=== PATIENT | female | born 1945 | race Caucasian/White ===

== ENCOUNTER 2022-01-20 09:13 | Day surgery (SDC) | payer OTHER ==
[~2022-01-20] VITALS: Ht 160 cm; Wt 77.5 kg
[~2022-01-20 09:13] MED LIST: AMLO5 PO; ANTI-FUNGAL CR113 GM TOP; ATOR40TA PO; BUDE6HFA INH; CLEM1.34 PO; Flovent Diskus50 MCG IH; INSULANPEN PO; ISOMON20 PO; LIDO4TS50 TOP; METF850 PO; Nexium40 M1 PO; PROP120ER PO; PROZAC20 MG PO; RIFA550T2 PO; [UNRECOGNIZED DRUG - OTHER] PO
== END 2022-01-20 11:40 | disposition home or self-care (01) ==
LOC: ORSCSDS 09:13
PROVIDERS: Ophthalmology
PROC: 08DJ3ZZ Extraction of Right Lens, Percutaneous Approach (ICD-10-PCS; principal; 2022-01-20 10:45)
DX: H25.11 Age-related nuclear cataract, right eye (principal); E11.9 Type 2 diabetes mellitus without complications; B19.20 Unspecified viral hepatitis C without hepatic coma; I10 Essential (primary) hypertension; Z86.73 Personal history of transient ischemic attack (TIA), and cerebral infarction without residual deficits; J44.9 Chronic obstructive pulmonary disease, unspecified; K74.60 Unspecified cirrhosis of liver; K21.9 Gastro-esophageal reflux disease without esophagitis; Z85.05 Personal history of malignant neoplasm of liver; E66.9 Obesity, unspecified; Z68.30 Body mass index [BMI] 30.0-30.9, adult; Z79.4 Long term (current) use of insulin; Z79.899 Other long term (current) drug therapy
CPT/HCPCS: 82947; J2001; J2250; J3301; J7040; V2632

== ENCOUNTER 2022-01-27 07:59 | Day surgery (SDC) | payer OTHER ==
[~2022-01-27] VITALS: Ht 160 cm; Wt 78.2 kg
[2022-01-27] MEDS ORDERED: MELO7.5 PO (09:06)
[2022-01-27] MEDS ORDERED: LOPE2C PO (09:08)
[2022-01-27] MEDS ORDERED: GABA100 PO (09:12)
[2022-01-27] MEDS ORDERED: FERSU300 PO (09:13)
[2022-01-27] MEDS ORDERED: OXYB5 PO (09:15)
[2022-01-27] MEDS ORDERED: INSULIN AS100 UNIT/6 SC (09:17)
== END 2022-01-27 10:25 | disposition home or self-care (01) ==
LOC: ORSCSDS 07:59
PROVIDERS: Ophthalmology
PROC: 08DK3ZZ Extraction of Left Lens, Percutaneous Approach (ICD-10-PCS; principal; 2022-01-27 09:30)
DX: H25.12 Age-related nuclear cataract, left eye (principal); Z96.1 Presence of intraocular lens; E11.9 Type 2 diabetes mellitus without complications; B19.20 Unspecified viral hepatitis C without hepatic coma; J44.9 Chronic obstructive pulmonary disease, unspecified; K74.60 Unspecified cirrhosis of liver; Z85.05 Personal history of malignant neoplasm of liver; I10 Essential (primary) hypertension; Z87.891 Personal history of nicotine dependence; E66.9 Obesity, unspecified; Z68.30 Body mass index [BMI] 30.0-30.9, adult; Z79.84 Long term (current) use of oral hypoglycemic drugs; Z79.4 Long term (current) use of insulin; Z79.899 Other long term (current) drug therapy
CPT/HCPCS: 82947; J2001; J2250; J3301; J7040; V2632

== ENCOUNTER 2023-04-19 09:06 | Inpatient (IN) | payer OTHER ==
[~2023-04-19] VITALS: Ht 160 cm; Wt 63.6 kg
[~2023-04-19 09:06] MED LIST changes: +FERSU300 PO; +GABA100 PO; +INSULIN AS100 UNIT/6 SC; +LOPE2C PO; +MELO7.5 PO; +OXYB5 PO
[2023-04-19] MEDS ORDERED: NS 1,000 ML IV SCH ×2 (10:35→15:00)
[2023-04-19 10:44] LABS: BASOPHILS ABSOLUTE AUTO 0.02 K/mm3 (0.00-0.23); BASOPHILS PERCENT AUTO 0 % (0-2); EOSINOPHILS ABSOLUTE AUTO 0.09 K/mm3 (0.00-0.68); EOSINOPHILS PERCENT AUTO 1 % (0-6); Hematocrit 34.8 % (33.0-51.0); IMMATURE GRAN ABSOLUTE AUTO 0.08 K/mm3 (0.00-0.10); IMMATURE GRAN PERCENT AUTO 1 % (0-1); LYMPHOCYTES ABSOLUTE AUTO 0.68 K/mm3 (0.84-5.20); LYMPHOCYTES PERCENT AUTO 5 % (21-46); MONOCYTES ABSOLUTE AUTO 0.75 K/mm3 (0.16-1.47); MONOCYTES PERCENT AUTO 6 % (4-13); Mean Corpuscular HGB 26.4 pg (26.0-34.0); Mean Corpuscular HGB Conc 31.6 g/dL (31.5-36.5); Mean Corpuscular Volume 84 fL (80-100); NEUTROPHILS ABSOLUTE AUTO 11.17 K/mm3 (1.96-9.15); NEUTROPHILS PERCENT AUTO 87 % (41-73); Platelet Count 259 K/mm3 (150-400); RDW Coefficient Variation 16.1 % (11.7-14.2); RDW Standard Deviation 48.4 fL (35.1-46.3); Red Blood Cell Count 4.16 M/mm3 (3.80-5.20); White Blood Cell Count 12.79 K/mm3 (4.00-11.30)
[2023-04-19 10:59] LABS: Source, Urine Clean Catch
[2023-04-19 11:12] LABS: Albumin, Blood 2.8 g/dL (3.4-5.0); Albumin/Globulin Ratio 0.7 (0.8-1.8); Bilirubin, Total 1.2 mg/dL (0.1-1.0); Bun/Creatinine Ratio 34.6 (12.0-20.0); Calcium, Blood 9.4 mg/dL (8.5-10.1); Creatinine, Blood 0.55 mg/dL (0.40-1.00); Globulin, Blood 4.1 g/dL (2.2-4.0); Potassium, Blood 4.3 mmol/L (3.5-5.5); Total Protein, Blood 6.9 g/dL (6.4-8.2)
[2023-04-19 11:34] LABS: Appearance, Urine Clear (Clear); Bilirubin, Urine Neg (Neg); Blood, Urine 4+ (Neg); Color, Urine Yellow (P-Yellow); Glucose Qualitative, Urine 4+ (Neg); Ketones, Urine Neg (Neg); Leukocyte Esterase, Urine Neg (Neg); Nitrite, Urine Neg (Neg); Protein, Urine Neg (Neg); Urobilinogen, Urine NORM (Normal); pH, Urine 6.5 (5.0-8.0)
[2023-04-19 12:03] LABS: Bacteria Not Seen /hpf; Red Blood Cells, Urine 0-2 /hpf (0-2); Squamous Epithelial Cells Not Seen /hpf (Few); White Blood Cells, Urine Not Seen /hpf (0-5)
[2023-04-19] MEDS ORDERED: Insulin Regular 100 Unit/ML 1ML Dose IV ONE (12:10)
[2023-04-19] MEDS ORDERED: Metoclopramide HCl 5MG / ML 2ML Vial IV PRN (14:35)
[2023-04-19] MEDS ORDERED: OxyCODONE HCL 5 MG TAB PO PRN (14:35)
[2023-04-19] MEDS ORDERED: Bisacodyl 10 MG Supp PR PRN (14:40)
[2023-04-19] MEDS ORDERED: FLU VACC QS2023-24(6MOS UP)/PF 60 MCG/0.5 ML SYRINGE IM SCH (14:40)
[2023-04-19] MEDS ORDERED: Magnesium Hydroxide Conc 10 ML UDC PO PRN (14:40)
[2023-04-19] MEDS ORDERED: Acetaminophen 650 MG Supp PR PRN (14:40)
[2023-04-19] MEDS ORDERED: HydrALAZINE HCl 20 MG / ML 1ML Vial IV PRN (14:45)
[2023-04-19] MEDS ORDERED: Ondansetron HCl 2 MG / ML 2ML Vial IV PRN (14:50)
[2023-04-19] MEDS ORDERED: Mometasone/Formoterol MDI 200/5 mcg 13 GM INH SCH (15:50)
[2023-04-19] MEDS ORDERED: MetroNIDAZOLE 500MG/NS 100 ml 100 ML IV SCH (16:00)
[2023-04-19] MEDS ORDERED: Ciprofloxacin 400MG/D5 200ML 200 ML IV SCH (16:00)
[2023-04-19] MEDS ORDERED: Insulin Human Lispro 100 Units/ML 3ML Syringe SC SCH (16:30)
[2023-04-19 17:43] VITALS: BP 139/63
[2023-04-19] MEDS ORDERED: OZEMPIC2 MG/0.75 SC (19:58)
[2023-04-19] MEDS ORDERED: PRED20 PO (20:01)
[2023-04-19] MEDS ORDERED: Zofran8 MG PO (20:06)
[2023-04-19] MEDS ORDERED: DURVALUMAB IV (20:08)
--- NOTE | 2023-04-19 20:08 | NUR ---
1705- PT ARRIVED ON FLOOR AT 1705 IN STABLE CONDITION.
[2023-04-19] MEDS ORDERED: ATOR20 PO (20:09)
[2023-04-19] MEDS ORDERED: Inderal 20 mg T20 MG PO (20:09)
[2023-04-19] MEDS ORDERED: METO5A PO (20:10)
[2023-04-19] MEDS ORDERED: OMEP20ER PO (20:11)
[2023-04-19] MEDS ORDERED: FAMO40 PO (20:12)
[2023-04-19 20:14] VITALS: BP 127/61
[2023-04-19] MEDS ORDERED: Acetaminophen650 M1 PO (20:14)
[2023-04-19] MEDS ORDERED: Famotidine 20 MG Tab PO SCH (21:00)
[2023-04-19] MEDS ORDERED: Gabapentin 100 MG Cap PO SCH ×2 (21:00)
[2023-04-19] MEDS ORDERED: oxyBUTYnin chloride 5 MG TAB PO SCH (21:00)
[2023-04-19] MEDS ORDERED: Lactobacil 2-S.Thermo-Bifido 1 1 Cap PO SCH (21:00)
[2023-04-19] MEDS ORDERED: FLUoxetine HCL 20 MG CAP PO SCH (21:00)
[2023-04-19] MEDS ORDERED: Insulin Glargine-Yfgn 100 Unit/mL 3 ML SYR SC SCH ×3 (21:00)
[2023-04-20] MEDS ORDERED: MetroNIDAZOLE 500MG/NS 100 ml 100 ML IV SCH
[2023-04-20 02:59] VITALS: BP 143/71
--- NOTE | 2023-04-20 04:45 | NUR ---
SHIFT SUMMARY 78 YR F ADMITTED ON 04-19-23. FULL CODE. NO ACUTE CHANGES THIS SHIFT. CURRENTLY NEEDING A STOOL SAMPLE TO RULE OUT CDIF. PT REPORTEDLY HAD 8 WATERY DIARRHEA STOOLS ON DAY SHIFT (04-19-23), BUT HAS NOT HAD A BM THIS SHIFT. SHE IS INCONTINENT OF URINE AND CURRENTLY HAS A PUREWIK. SHE IS A VERY HEAVY WETTER AND WHEN PUREWIK CAME OUT OF PLACE THE BED WAS SOAKED REQUIRING A FULL BED CHANGE. PUREWIK SHOULD BE CHECKED OFTEN. PT IS A&O BUT VERY SLEEPY THIS SHIFT. MEDICATED FOR PAIN AT BEGINNING OF SHIFT BUT NO OTHER C/O PAIN OR DISCOMFORT FOR REST OF THIS SHIFT.
[2023-04-20 05:26] LABS: BASOPHILS ABSOLUTE AUTO 0.02 K/mm3 (0.00-0.23); BASOPHILS PERCENT AUTO 0 % (0-2); EOSINOPHILS ABSOLUTE AUTO 0.22 K/mm3 (0.00-0.68); EOSINOPHILS PERCENT AUTO 3 % (0-6); Hematocrit 36.3 % (33.0-51.0); Hemoglobin 11.7 g/dL (11.5-16.0); IMMATURE GRAN ABSOLUTE AUTO 0.04 K/mm3 (0.00-0.10); IMMATURE GRAN PERCENT AUTO 0 % (0-1); LYMPHOCYTES ABSOLUTE AUTO 0.86 K/mm3 (0.84-5.20); LYMPHOCYTES PERCENT AUTO 10 % (21-46); MONOCYTES ABSOLUTE AUTO 0.91 K/mm3 (0.16-1.47); MONOCYTES PERCENT AUTO 10 % (4-13); Mean Corpuscular HGB 26.7 pg (26.0-34.0); Mean Corpuscular HGB Conc 32.2 g/dL (31.5-36.5); Mean Corpuscular Volume 83 fL (80-100); Mean Platelet Volume 9.3 fL (9.1-12.4); NEUTROPHILS ABSOLUTE AUTO 6.84 K/mm3 (1.96-9.15); NEUTROPHILS PERCENT AUTO 77 % (41-73); Platelet Count 206 K/mm3 (150-400); RDW Standard Deviation 47.9 fL (35.1-46.3); Red Blood Cell Count 4.38 M/mm3 (3.80-5.20); White Blood Cell Count 8.89 K/mm3 (4.00-11.30)
[2023-04-20] MEDS ORDERED: Omeprazole 20 MG CapCR PO SCH (06:00)
[2023-04-20 06:34] LABS: Albumin, Blood 2.5 g/dL (3.4-5.0); Albumin/Globulin Ratio 0.7 (0.8-1.8); Bilirubin, Total 1.2 mg/dL (0.1-1.0); Bun/Creatinine Ratio 15.9 (12.0-20.0); Calcium, Blood 8.8 mg/dL (8.5-10.1); Creatinine, Blood 0.44 mg/dL (0.40-1.00); Globulin, Blood 3.8 g/dL (2.2-4.0); Potassium, Blood 3.9 mmol/L (3.5-5.5); Total Protein, Blood 6.3 g/dL (6.4-8.2)
[2023-04-20 08:06] VITALS: BP 150/74
[2023-04-20] MEDS ORDERED: Heparin Sodium,Porcine 5,000 UNIT/0.5 ML SDV SC SCH (09:00)
[2023-04-20] MEDS ORDERED: FLUoxetine HCL 20 MG CAP PO SCH (09:00)
[2023-04-20] MEDS ORDERED: Propranolol HCL 60 MG CAPCR PO SCH (09:00)
--- NOTE | 2023-04-20 09:16 | NUR ---
EMESIS CALLED DR GUILLERMO. ORDER FOR ZOFRAN RECEIVED. CARE ONGOING.
[2023-04-20] MEDS ORDERED: Ondansetron HCl 2 MG / ML 2ML Vial IV PRN (09:20)
[2023-04-20 12:15] LABS: Adenovirus F 40/41 Not Detected (NOT DETECT); Astrovirus Not Detected (NOT DETECT); Campylobacter Sp Not Detected (NOT DETECT); Cryptosporidium Not Detected (NOT DETECT); Cyclospora Cayetanensis Not Detected (NOT DETECT); E. Coli O157 Not Detected (NOT DETECT); Entamoeba Histolytica Not Detected (NOT DETECT); Enteroaggregative E. coli-EAEC Not Detected (NOT DETECT); Enteropathogenic E. coli-EPEC Not Detected (NOT DETECT); Enterotoxigenic E. coli-ETEC Not Detected (NOT DETECT); Giardia Lamblia Not Detected (NOT DETECT); Norovirus GI/GII Not Detected (NOT DETECT); Plesiomonas Shigelloides Not Detected (NOT DETECT); Rotavirus A Not Detected (NOT DETECT); Salmonella Sp Not Detected (NOT DETECT); Sapovirus Not Detected (NOT DETECT); Shiga Toxin-prod E. coli-STEC Not Detected (NOT DETECT); Shigella/Enteroin E. coli-EIEC Not Detected (NOT DETECT); Vibrio Cholerae Not Detected (NOT DETECT); Vibrio Sp Not Detected (NOT DETECT); Yersinia Enterocolitica Not Detected (NOT DETECT)
--- NOTE | 2023-04-20 15:09 | NUR ---
TRANSFER PT REPORT RECEIUVED FROM PCU. PT ARRIVED VIA W/C WITH HIGH FLOW OXYGEN CANNULA AT 4L. PT ALERT AND COOPERATIVE WITH CARE. LUNGS DECREASED T/O. CARE ONGOIONG.
[2023-04-20 15:45] VITALS: BP 125/57
--- NOTE | 2023-04-20 16:42 | NUR ---
NOTE PT AWKAE AND ALERT. VSS. TOLERATING CLEAR LIQUID THIS AFTERNOON. NO NAUSEA, EMESIS, BLAOTING OR CRAMPING. PT HAD 1 STOOL. SENT FOR CULTURE. CDIFF NEGATIVE. REMOVED FROM ISOLATION. IVF INFUSING. NEW IV PLACED D/T LEAKING. PT UP TO BSC WITH 1 ASSIST D/T LINES. CONSULT FOR DR VALENCIA CALLED TO [facility] PER ORDER. PURWICK IN PLACED. PT VOIDING DARK, CALIN CLEAR URINE. CARE ONGOING.
[2023-04-20 20:57] VITALS: BP 120/60
[2023-04-20] MEDS ORDERED: Insulin Glargine-Yfgn 100 Unit/mL 3 ML SYR SC SCH (21:00)
[2023-04-21 03:34] VITALS: BP 140/63
--- NOTE | 2023-04-21 04:11 | NUR ---
Shift Summary Patient is an 78 year old female admitted with colitis. She has a history of stage 4 liver cancer with metastisis to the lungs. Her respirations are regular and unlabored on room air. She is alert and oriented x 4. She has normal saline infusing per pump at 100ml/hr. She denies pain. She gets blood glucose checks AC and HS. Her HS blood sugar level was 267. She did not require sliding scale coverage but did receive her routine bedtime insulin. Bed is in low position with side rails up x 2. Call light in reach.
[2023-04-21 05:25] LABS: Hematocrit 34.8 % (33.0-51.0); Mean Corpuscular HGB 26.8 pg (26.0-34.0); Mean Corpuscular HGB Conc 31.6 g/dL (31.5-36.5); Mean Corpuscular Volume 85 fL (80-100); Mean Platelet Volume 9.3 fL (9.1-12.4); Platelet Count 190 K/mm3 (150-400); RDW Standard Deviation 49.5 fL (35.1-46.3); Red Blood Cell Count 4.11 M/mm3 (3.80-5.20); White Blood Cell Count 9.48 K/mm3 (4.00-11.30)
[2023-04-21 06:04] LABS: Albumin, Blood 2.2 g/dL (3.4-5.0); Albumin/Globulin Ratio 0.6 (0.8-1.8); Bilirubin, Total 1.1 mg/dL (0.1-1.0); Bun/Creatinine Ratio 12.6 (12.0-20.0); Calcium, Blood 7.9 mg/dL (8.5-10.1); Creatinine, Blood 0.56 mg/dL (0.40-1.00); Globulin, Blood 3.5 g/dL (2.2-4.0); Potassium, Blood 3.4 mmol/L (3.5-5.5); Total Protein, Blood 5.7 g/dL (6.4-8.2)
[2023-04-21 07:18] VITALS: BP 144/82
[2023-04-21] MEDS ORDERED: Isosorbide Mononitrate 30 MG TABCR PO SCH (09:00)
[2023-04-21] MEDS ORDERED: Potassium Chloride 20 MEQ/15 ML UDC PO STA (12:37)
[2023-04-21] MEDS ORDERED: VISBIOME 112.51 EACH PO (13:49)
[2023-04-21] MEDS ORDERED: CIPR500 PO (13:49)
[2023-04-21] MEDS ORDERED: HUMALOG JU100 UNIT/2 SC (13:49)
[2023-04-21] MEDS ORDERED: FLAGYL500 M1 PO (13:50)
--- NOTE | 2023-04-21 14:54 | NUR ---
DISCHARGE NOTE MS PINTO IS A&OX4. NO NAUSEA. DOES C/O ITCHING TO CHEST/ARMS/BACK AND SHE HAS BEEN SCRATCHING AND HAS MULTIPLE SMALL OPEN WOUNDS/SCABS FROM SCRATCHING. NO C/O PAIN. SHE WAS ABLE TO STAND UP WITHOUT DIZZYNESS WITH 2 PERSON ASSIST WITH WALKER AND GAIT BELT TO THE CHAIR. DISCHARGED HOME WITH HER , WHO REQUIRES ASSISTANCE ALSO, AND THEIR DAUGHTER WHO IS DOWN FROM [place] TO HELP THEM. IVF DISCONTINUED PRIOR TO DISCHARGE. PIV REMOVED BY PCT PRIOR TO DISCHARGE. DISCHARGED VIA WHEELCHAIR AT 1445HRS.
[2023-04-27] MEDS ORDERED: ELIQUIS5 M2 PO (12:11)
[2023-04-27] MEDS ORDERED: SPIR25 PO (12:12)
== END 2023-04-21 14:58 | disposition home health service (06) | DRG 394 ==
LOC: ER 09:06 → MEDS 09:07 → ER 09:07 → MEDS 09:07
PROVIDERS: Emergency Medicine; Internal Medicine; ADMIT Hospitalist
DX: K52.1 Toxic gastroenteritis and colitis (principal); C22.8 Malignant neoplasm of liver, primary, unspecified as to type; C78.01 Secondary malignant neoplasm of right lung; E44.1 Mild protein-calorie malnutrition; E11.65 Type 2 diabetes mellitus with hyperglycemia; E87.6 Hypokalemia; C55 Malignant neoplasm of uterus, part unspecified; K64.8 Other hemorrhoids; B19.20 Unspecified viral hepatitis C without hepatic coma; M19.90 Unspecified osteoarthritis, unspecified site; J44.9 Chronic obstructive pulmonary disease, unspecified; I10 Essential (primary) hypertension; T45.1X5A Adverse effect of antineoplastic and immunosuppressive drugs, initial encounter; F43.10 Post-traumatic stress disorder, unspecified; Z88.0 Allergy status to penicillin; Z91.013 Allergy to seafood; Z88.2 Allergy status to sulfonamides; Z88.8 Allergy status to other drugs, medicaments and biological substances; Z91.018 Allergy to other foods; Z91.048 Other nonmedicinal substance allergy status; Z79.899 Other long term (current) drug therapy; Z79.84 Long term (current) use of oral hypoglycemic drugs; Z79.4 Long term (current) use of insulin; Z79.891 Long term (current) use of opiate analgesic; Z85.42 Personal history of malignant neoplasm of other parts of uterus; Z90.49 Acquired absence of other specified parts of digestive tract; Z87.891 Personal history of nicotine dependence; Z68.25 Body mass index [BMI] 25.0-25.9, adult
CPT/HCPCS: 36415; 74177; 80053; 81001; 82105; 82947; 83036; 83690; 85025; 85027; 87507; 92610; 93005; 93010; 94640; 94664; 94760; 96361; 96365-59; 96366; 96367; 96375; 96376; 97110; 97162; 97165; 97530; 97535; 99285-25; A9270; G0378; J0744; J1644; J1815; J2405; J7030; Q9967

== ENCOUNTER 2023-04-28 19:15 | Emergency (ER) | payer OTHER ==
[~2023-04-28] VITALS: Ht 160 cm; Wt 64.4 kg
[~2023-04-28 19:15] MED LIST changes: +ATOR20 PO; +Acetaminophen650 M1 PO; +CIPR500 PO; +DURVALUMAB IV; +ELIQUIS5 M2 PO; +FAMO40 PO; +FLAGYL500 M1 PO; +HUMALOG JU100 UNIT/2 SC; +Inderal 20 mg T20 MG PO; +METO5A PO; +OMEP20ER PO; +OZEMPIC2 MG/0.75 SC; +PRED20 PO; +SPIR25 PO; +VISBIOME 112.51 EACH PO; +Zofran8 MG PO
[2023-04-28 19:48] LABS: BASOPHILS ABSOLUTE AUTO 0.01 K/mm3 (0.00-0.23); BASOPHILS PERCENT AUTO 0 % (0-2); EOSINOPHILS ABSOLUTE AUTO 0.05 K/mm3 (0.00-0.68); EOSINOPHILS PERCENT AUTO 1 % (0-6); Hematocrit 32.5 % (33.0-51.0); Hemoglobin 10.5 g/dL (11.5-16.0); IMMATURE GRAN ABSOLUTE AUTO 0.03 K/mm3 (0.00-0.10); IMMATURE GRAN PERCENT AUTO 0 % (0-1); LYMPHOCYTES ABSOLUTE AUTO 0.87 K/mm3 (0.84-5.20); LYMPHOCYTES PERCENT AUTO 11 % (21-46); MONOCYTES ABSOLUTE AUTO 0.86 K/mm3 (0.16-1.47); MONOCYTES PERCENT AUTO 11 % (4-13); Mean Corpuscular HGB 27.1 pg (26.0-34.0); Mean Corpuscular HGB Conc 32.3 g/dL (31.5-36.5); Mean Corpuscular Volume 84 fL (80-100); Mean Platelet Volume 9.3 fL (9.1-12.4); NEUTROPHILS ABSOLUTE AUTO 6.08 K/mm3 (1.96-9.15); NEUTROPHILS PERCENT AUTO 77 % (41-73); Platelet Count 260 K/mm3 (150-400); RDW Coefficient Variation 17.2 % (11.7-14.2); RDW Standard Deviation 52.6 fL (35.1-46.3); Red Blood Cell Count 3.88 M/mm3 (3.80-5.20)
[2023-04-28 20:06] LABS: Albumin, Blood 2.2 g/dL (3.4-5.0); Albumin/Globulin Ratio 0.6 (0.8-1.8); Bilirubin, Total 0.4 mg/dL (0.1-1.0); Bun/Creatinine Ratio 26.6 (12.0-20.0); Calcium, Blood 8.2 mg/dL (8.5-10.1); Creatinine, Blood 0.6 mg/dL (0.40-1.00); Globulin, Blood 3.7 g/dL (2.2-4.0); Potassium, Blood 4.1 mmol/L (3.5-5.5); Total Protein, Blood 5.9 g/dL (6.4-8.2)
[2023-04-28 20:56] LABS: Base Excess Venous 3.9 mmol/L; Bicarbonate Venous 27.6 mmol/L (24.0-30.0); PCO2 Venous 40.8 mmHg (38-42); pH Blood Venous 7.45 (7.34-7.37)
[2023-04-28 22:00] VITALS: BP 155/68
== END 2023-04-28 22:10 | disposition home or self-care (01) ==
LOC: ER 19:15
PROVIDERS: Student in an Organized Health Care Education/Training Program
DX: E11.65 Type 2 diabetes mellitus with hyperglycemia (principal); I11.0 Hypertensive heart disease with heart failure; I50.9 Heart failure, unspecified; Z87.891 Personal history of nicotine dependence; M19.90 Unspecified osteoarthritis, unspecified site; J44.9 Chronic obstructive pulmonary disease, unspecified; Z79.4 Long term (current) use of insulin; Z79.52 Long term (current) use of systemic steroids; Z79.01 Long term (current) use of anticoagulants; Z79.899 Other long term (current) drug therapy; Z88.0 Allergy status to penicillin; Z88.1 Allergy status to other antibiotic agents; Z88.2 Allergy status to sulfonamides; Z91.018 Allergy to other foods; Z88.8 Allergy status to other drugs, medicaments and biological substances; C50.919 Malignant neoplasm of unspecified site of unspecified female breast
CPT/HCPCS: 71046; 80053; 82803; 82947; 83880; 85025; 93005; 93010; 99284-25

== ENCOUNTER 2023-05-09 15:08 | Emergency (ER) | payer OTHER ==
[~2023-05-09] VITALS: Ht 160 cm; Wt 60.8 kg
[2023-05-09 15:50] VITALS: BP 131/59
[2023-05-09 16:49] LABS: BASOPHILS ABSOLUTE AUTO 0.01 K/mm3 (0.00-0.23); BASOPHILS PERCENT AUTO 0 % (0-2); EOSINOPHILS PERCENT AUTO 0 % (0-6); Hematocrit 33.2 % (33.0-51.0); Hemoglobin 10.6 g/dL (11.5-16.0); IMMATURE GRAN ABSOLUTE AUTO 0.04 K/mm3 (0.00-0.10); IMMATURE GRAN PERCENT AUTO 0 % (0-1); LYMPHOCYTES ABSOLUTE AUTO 0.95 K/mm3 (0.84-5.20); LYMPHOCYTES PERCENT AUTO 10 % (21-46); MONOCYTES ABSOLUTE AUTO 0.97 K/mm3 (0.16-1.47); MONOCYTES PERCENT AUTO 10 % (4-13); Mean Corpuscular HGB Conc 31.9 g/dL (31.5-36.5); Mean Corpuscular Volume 85 fL (80-100); Mean Platelet Volume 9.2 fL (9.1-12.4); NEUTROPHILS PERCENT AUTO 79 % (41-73); Platelet Count 307 K/mm3 (150-400); RDW Coefficient Variation 16.7 % (11.7-14.2); RDW Standard Deviation 51.6 fL (35.1-46.3); Red Blood Cell Count 3.92 M/mm3 (3.80-5.20); White Blood Cell Count 9.47 K/mm3 (4.00-11.30)
[2023-05-09 17:07] LABS: Albumin, Blood 2.8 g/dL (3.4-5.0); Albumin/Globulin Ratio 0.7 (0.8-1.8); Bilirubin, Total 0.8 mg/dL (0.1-1.0); Bun/Creatinine Ratio 37.3 (12.0-20.0); Calcium, Blood 9.2 mg/dL (8.5-10.1); Creatinine, Blood 0.62 mg/dL (0.40-1.00); Potassium, Blood 4.6 mmol/L (3.5-5.5); Total Protein, Blood 6.8 g/dL (6.4-8.2)
== END 2023-05-09 22:33 | disposition home or self-care (01) ==
LOC: ER 15:08
PROVIDERS: Student in an Organized Health Care Education/Training Program
DX: E11.65 Type 2 diabetes mellitus with hyperglycemia (principal); Z88.8 Allergy status to other drugs, medicaments and biological substances; Z88.0 Allergy status to penicillin; Z88.2 Allergy status to sulfonamides; Z88.1 Allergy status to other antibiotic agents; Z79.899 Other long term (current) drug therapy; Z79.4 Long term (current) use of insulin; Z79.52 Long term (current) use of systemic steroids; M19.90 Unspecified osteoarthritis, unspecified site; Z87.891 Personal history of nicotine dependence
CPT/HCPCS: 80053; 82947; 85025; 93005; 93010; 99283-25

== ENCOUNTER 2023-08-16 11:02 | Inpatient (IN) | payer OTHER ==
[~2023-08-16] VITALS: Ht 160 cm; Wt 64.0 kg
[~2023-08-16 11:02] MED LIST changes: -INSULANPEN PO; +INSULANPEN SC; -ISOMON20 PO; +ISOSORBIDE MONO30 MG PO
[2023-08-16] MEDS ORDERED: JARDIANCE10 MG PO (11:38)
[2023-08-16] MEDS ORDERED: STIOLTO RESPIMAT4 G1 (11:41)
[2023-08-16] MEDS ORDERED: NITROGLYCERIN0.4 M1 SL (11:42)
[2023-08-16 11:52] LABS: BASOPHILS ABSOLUTE AUTO 0.01 K/mm3 (0.00-0.23); BASOPHILS PERCENT AUTO 0 % (0-2); EOSINOPHILS ABSOLUTE AUTO 0.08 K/mm3 (0.00-0.68); EOSINOPHILS PERCENT AUTO 1 % (0-6); Hematocrit 32.3 % (33.0-51.0); Hemoglobin 9.2 g/dL (11.5-16.0); IMMATURE GRAN ABSOLUTE AUTO 0.05 K/mm3 (0.00-0.10); IMMATURE GRAN PERCENT AUTO 1 % (0-1); LYMPHOCYTES ABSOLUTE AUTO 0.92 K/mm3 (0.84-5.20); LYMPHOCYTES PERCENT AUTO 9 % (21-46); MONOCYTES ABSOLUTE AUTO 1.12 K/mm3 (0.16-1.47); MONOCYTES PERCENT AUTO 11 % (4-13); Mean Corpuscular HGB 22.2 pg (26.0-34.0); Mean Corpuscular HGB Conc 28.5 g/dL (31.5-36.5); Mean Corpuscular Volume 78 fL (80-100); Mean Platelet Volume 9.5 fL (9.1-12.4); NEUTROPHILS PERCENT AUTO 79 % (41-73); Platelet Count 274 K/mm3 (150-400); RDW Coefficient Variation 18.2 % (11.7-14.2); RDW Standard Deviation 50.1 fL (35.1-46.3); Red Blood Cell Count 4.15 M/mm3 (3.80-5.20); White Blood Cell Count 10.58 K/mm3 (4.00-11.30)
[2023-08-16 12:09] LABS: Albumin, Blood 2.7 g/dL (3.4-5.0); Albumin/Globulin Ratio 0.7 (0.8-1.8); Bun/Creatinine Ratio 35.4 (12.0-20.0); Calcium, Blood 8.4 mg/dL (8.5-10.1); Creatinine, Blood 0.68 mg/dL (0.40-1.00); Globulin, Blood 3.7 g/dL (2.2-4.0); Potassium, Blood 4.2 mmol/L (3.5-5.5); Total Protein, Blood 6.4 g/dL (6.4-8.2)
[2023-08-16 12:21] LABS: Source, Urine Clean Catch
[2023-08-16 12:24] LABS: Appearance, Urine Clear (Clear); Bilirubin, Urine Neg (Neg); Blood, Urine 1+ (Neg); Color, Urine Yellow (P-Yellow); Glucose Qualitative, Urine 4+ (Neg); Ketones, Urine Neg (Neg); Leukocyte Esterase, Urine Neg (Neg); Nitrite, Urine Neg (Neg); Protein, Urine Neg (Neg); Specific Gravity, Urine 1.015 (1.003-1.022); Urobilinogen, Urine NORM (Normal)
[2023-08-16 12:35] LABS: White Blood Cells, Urine 0-2 /hpf (0-5)
[2023-08-16 12:36] LABS: Bacteria Rare /hpf; Squamous Epithelial Cells Few /hpf (Few)
[2023-08-16] MEDS ORDERED: Lactated Ringer's 1,000 ML IV ONE (14:15)
[2023-08-16] MEDS ORDERED: FentaNYL Citrate 50 MCG/ML 2 ML Injection IV ONE (14:40)
[2023-08-16] MEDS ORDERED: Acetaminophen 325 MG TABLET PO PRN (16:05)
[2023-08-16] MEDS ORDERED: Nitroglycerin 0.4 MG SUBL SL PRN (16:15)
[2023-08-16] MEDS ORDERED: Pantoprazole Sodium 40 MG Tab PO SCH (16:30)
[2023-08-16] MEDS ORDERED: Ipratropium/Albuterol SulF 2.5-0.5MG/3 ML Amp INH SCH (16:45)
[2023-08-16 16:50] LABS: International Normalized Ratio 0.97; Prothrombin Time Results 10.4 Sec (9.7-11.5)
[2023-08-16] MEDS ORDERED: CefTRIAXone Sodium 1,000 MG in NS 100 ML IV SCH (17:00)
[2023-08-16 18:22] VITALS: BP 146/58
--- NOTE | 2023-08-16 18:36 | NUR ---
ADMISSION NOTE PT ARRIVED TO PCU AT APPROX. 1810. SHE IS A&O X4 AND WAS ABLE TO AMBULATE A SBA FROM ED BED TO PCU BED. VSS. SHE REPORTS TENDERNESS/PAIN IN LOWER ABD THAT RADIATES TO L FLANK AREA. SHE APPEARS COMFORTABLE AT THIS TIME. CALL LIGHT W/IN REACH.
[2023-08-16 20:07] LABS: Hematocrit 32.6 % (33.0-51.0); Hemoglobin 9.2 g/dL (11.5-16.0)
[2023-08-16 20:35] VITALS: BP 113/67
[2023-08-16] MEDS ORDERED: Propranolol HCL 20 MG TAB PO SCH (21:00)
[2023-08-16] MEDS ORDERED: oxyBUTYnin chloride 5 MG TAB PO SCH (21:00)
[2023-08-16] MEDS ORDERED: Lactobacil 2-S.Thermo-Bifido 1 1 Cap PO SCH (21:00)
[2023-08-16] MEDS ORDERED: Insulin Glargine-Yfgn 100 Unit/mL 3 ML SYR SC SCH (21:00)
[2023-08-16] MEDS ORDERED: Apixaban 5 MG Tab PO SCH (21:00)
[2023-08-17] VITALS (8 sets, daily range): BP systolic 93–138; BP diastolic 44–84
--- NOTE | 2023-08-17 03:41 | NUR ---
PT IS ALERT AND ORIENTED X 4, PLEASANT AND COOPERATIVE WITH CARE. SHE IS ABLE TO MAKE NEEDS KNOWN. PT ON 2L NC AND MAINTAINING 02 SATURATION ABOVE 92%, SHE DENIES SOB. HR SR 40'S-40'S. BP STABLE. SHE DENIES CHEST PAIN/PRESSURE. PT SAID THAT SHE HAS HAD BLACK TARRY STOOL AND RED BLOOD WITH BOWEL MOVEMENTS RECENTLY. NO BLOODY STOOLS THIS SHIFT. CT STATED NO ACTIVE BLEEDING, SEE CT REPORT. PT IS DUE TO HAVE IVC FILTER PLACED Tuesday08/18/23. PT HAS DENIED NAUSEA THIS SHIFT. PT TOLERATED SUGAR FREE CHOCOLATE PUDDING, MILK, AND CHICKEN BROTH WELL. PT TOLERATES STANDING AND PIVOTING TO BEDSIDE COMMODE WELL WITH SBA. PT HASN'T SLEPT MUCH THIS SHIFT. SHE SAID SHE USUALLY WAKES UP AROUND 0100 AT HOME. PT CURRENTLY RESTING IN BED WATCHING TV. CALL LIGHT WITHIN REACH.
[2023-08-17 04:57] LABS: BASOPHILS ABSOLUTE AUTO 0.01 K/mm3 (0.00-0.23); BASOPHILS PERCENT AUTO 0 % (0-2); EOSINOPHILS ABSOLUTE AUTO 0.08 K/mm3 (0.00-0.68); EOSINOPHILS PERCENT AUTO 1 % (0-6); Hematocrit 30.2 % (33.0-51.0); Hemoglobin 8.6 g/dL (11.5-16.0); IMMATURE GRAN ABSOLUTE AUTO 0.06 K/mm3 (0.00-0.10); IMMATURE GRAN PERCENT AUTO 1 % (0-1); LYMPHOCYTES PERCENT AUTO 9 % (21-46); MONOCYTES ABSOLUTE AUTO 1.09 K/mm3 (0.16-1.47); MONOCYTES PERCENT AUTO 11 % (4-13); Mean Corpuscular HGB Conc 28.5 g/dL (31.5-36.5); Mean Corpuscular Volume 77 fL (80-100); NEUTROPHILS ABSOLUTE AUTO 7.46 K/mm3 (1.96-9.15); NEUTROPHILS PERCENT AUTO 78 % (41-73); Platelet Count 255 K/mm3 (150-400); RDW Coefficient Variation 18.2 % (11.7-14.2); RDW Standard Deviation 49.7 fL (35.1-46.3); Red Blood Cell Count 3.91 M/mm3 (3.80-5.20)
[2023-08-17 05:30] LABS: Albumin, Blood 2.3 g/dL (3.4-5.0); Albumin/Globulin Ratio 0.6 (0.8-1.8); Bilirubin, Total 0.9 mg/dL (0.1-1.0); Bun/Creatinine Ratio 30.3 (12.0-20.0); Calcium, Blood 8.8 mg/dL (8.5-10.1); Creatinine, Blood 0.66 mg/dL (0.40-1.00); Globulin, Blood 3.6 g/dL (2.2-4.0); Potassium, Blood 4.5 mmol/L (3.5-5.5); Total Protein, Blood 5.9 g/dL (6.4-8.2)
[2023-08-17] MEDS ORDERED: Insulin Human Lispro 100 Units/ML 3ML Syringe SC SCH (07:30)
[2023-08-17] MEDS ORDERED: Isosorbide Mononitrate 20 MG TAB PO SCH (09:00)
[2023-08-17] MEDS ORDERED: FLUoxetine HCL 20 MG CAP PO SCH (09:00)
[2023-08-17] MEDS ORDERED: Spironolactone 25 MG Tab PO SCH (09:00)
[2023-08-17] MEDS ORDERED: Empagliflozin 10 MG TAB PO SCH (09:00)
[2023-08-17] MEDS ORDERED: Atorvastatin 10 MG Tab PO SCH (09:00)
[2023-08-17] MEDS ORDERED: AmLODIPine Besylate 5 MG Tab PO SCH (09:00)
[2023-08-17] MEDS ORDERED: PredniSONE 20 MG Tab PO SCH (09:00)
[2023-08-17] MEDS ORDERED: FentaNYL Citrate 50 MCG/ML 2 ML Injection IV PRN (15:55)
[2023-08-17] MEDS ORDERED: Calcium Carbonate 500 MG Tab Chew PO SCH (17:30)
--- NOTE | 2023-08-17 19:34 | NUR ---
END OF SHIFT PT A&O X4, PLEASANT & COOPERATIVE. VSS. SPO2 > 92% ON 2L NC. MONITOR SHOWING SR, HR 80s-90s. PT REPORTING ABD PAIN THAT PREVENTS HER FROM BEING ABLE TO MOVE. PT REPORTS HER ONCOLOGIST HAS TOLD HER NOT TO TAKE TYLENOL. MD WHALEN W/ NEW ORDER FOR PRN IV FENTANYL FOR PAIN. PT MEDICATED PER EMAR/PT REQUEST W/ PT REPORT OF IMPROVEMENT IN PAIN. PT W/ NO SIGNS OF BLEEDING PER RECTUM THIS SHIFT.
[2023-08-18] MEDS ORDERED: OxyCODONE 5 mg/Acetamin 325 mg TABLET PO PRN ×2 (02:25→12:25)
[2023-08-18] MEDS ORDERED: FentaNYL Citrate 50 MCG/ML 2 ML Injection IV ONE (03:00)
[2023-08-18 04:23] VITALS: BP 134/61
--- NOTE | 2023-08-18 05:17 | NUR ---
SHIFT SUMMARY ASSUMED CARE OF PT AT 1900. PT IS A/OX4. HEART SOUNDS REGULAR. LUNG SOUNDS DIMINISHED IN LUNGS. PT REMAINED ON 2L NC T/O THE NOC. PT 1P SBA TO BSC. PT HAD LOTS OF ABD PAIN. HOSPITALIST NOTIFIED AND ORDERED MEDS PER CHART.
[2023-08-18 07:23] VITALS: BP 131/59
[2023-08-18 11:54] VITALS: BP 128/61
[2023-08-18 12:25] LABS: BASOPHILS ABSOLUTE AUTO 0.02 K/mm3 (0.00-0.23); BASOPHILS PERCENT AUTO 0 % (0-2); EOSINOPHILS ABSOLUTE AUTO 0.01 K/mm3 (0.00-0.68); EOSINOPHILS PERCENT AUTO 0 % (0-6); Hemoglobin 8.4 g/dL (11.5-16.0); IMMATURE GRAN ABSOLUTE AUTO 0.07 K/mm3 (0.00-0.10); IMMATURE GRAN PERCENT AUTO 1 % (0-1); LYMPHOCYTES ABSOLUTE AUTO 0.52 K/mm3 (0.84-5.20); LYMPHOCYTES PERCENT AUTO 6 % (21-46); MONOCYTES ABSOLUTE AUTO 0.67 K/mm3 (0.16-1.47); MONOCYTES PERCENT AUTO 7 % (4-13); Mean Corpuscular HGB 21.6 pg (26.0-34.0); Mean Corpuscular Volume 75 fL (80-100); Mean Platelet Volume 8.8 fL (9.1-12.4); NEUTROPHILS ABSOLUTE AUTO 8.14 K/mm3 (1.96-9.15); NEUTROPHILS PERCENT AUTO 86 % (41-73); Platelet Count 235 K/mm3 (150-400); RDW Coefficient Variation 18.3 % (11.7-14.2); RDW Standard Deviation 48.2 fL (35.1-46.3); Red Blood Cell Count 3.88 M/mm3 (3.80-5.20); White Blood Cell Count 9.43 K/mm3 (4.00-11.30)
--- NOTE | 2023-08-18 15:56 | NUR ---
SHIFT SUMMARY: PATIENT IS A&OX4. PATIENT IS ON 2L NC WITH >90% OXYGEN SATS. PAIN IS MANAGED WITH PO PERCOCET AND IV FENTANYL FOR BREAK THROUGH EARLIER THIS MORNING. SHE IS TOLERATING PO INTAKE AND IS VOIDING. SHE IS A SBA TO THE BATHROOM OR WITH AMBULATION IN THE ROOM. PATIENT HAD A BM YESTERDAY THAT SHE STATES WAS THE COLOR "BLACK". PATIENT CALLS APPROPRIATELY. SHE IS CURRENTLY LAYING IN BED WITH CALL LIGHT IN REACH. THE PLAN AT THIS TIME IS FOR THE PATIENT TO HAVE THE IVC FILTER PLACED BY DR. BAH BY Tuesday08/23/23 PER IN SERVICE COORDINATOR NURSE
[2023-08-18 17:35] VITALS: BP 117/60
[2023-08-18 19:43] VITALS: BP 134/85
[2023-08-18 23:50] VITALS: BP 135/67
[2023-08-19 03:51] VITALS: BP 139/70
[2023-08-19 04:11] LABS: BASOPHILS ABSOLUTE AUTO 0.02 K/mm3 (0.00-0.23); BASOPHILS PERCENT AUTO 0 % (0-2); EOSINOPHILS ABSOLUTE AUTO 0.02 K/mm3 (0.00-0.68); EOSINOPHILS PERCENT AUTO 0 % (0-6); Hematocrit 29.2 % (33.0-51.0); Hemoglobin 8.3 g/dL (11.5-16.0); IMMATURE GRAN ABSOLUTE AUTO 0.09 K/mm3 (0.00-0.10); IMMATURE GRAN PERCENT AUTO 1 % (0-1); LYMPHOCYTES ABSOLUTE AUTO 0.74 K/mm3 (0.84-5.20); LYMPHOCYTES PERCENT AUTO 9 % (21-46); MONOCYTES ABSOLUTE AUTO 0.95 K/mm3 (0.16-1.47); MONOCYTES PERCENT AUTO 11 % (4-13); Mean Corpuscular HGB 21.6 pg (26.0-34.0); Mean Corpuscular HGB Conc 28.4 g/dL (31.5-36.5); Mean Corpuscular Volume 76 fL (80-100); Mean Platelet Volume 9.1 fL (9.1-12.4); NEUTROPHILS ABSOLUTE AUTO 6.85 K/mm3 (1.96-9.15); NEUTROPHILS PERCENT AUTO 79 % (41-73); Platelet Count 242 K/mm3 (150-400); RDW Coefficient Variation 18.5 % (11.7-14.2); RDW Standard Deviation 49.5 fL (35.1-46.3); Red Blood Cell Count 3.84 M/mm3 (3.80-5.20); White Blood Cell Count 8.67 K/mm3 (4.00-11.30)
[2023-08-19 04:27] LABS: Bun/Creatinine Ratio 30.1 (12.0-20.0); Calcium, Blood 8.7 mg/dL (8.5-10.1); Creatinine, Blood 0.86 mg/dL (0.40-1.00)
--- NOTE | 2023-08-19 05:31 | NUR ---
SHIFT SUMMARY ASSUMED CARE OF PT AT 1900. PT IS A/OX4. HEART SOUNDS REGULAR. LUNG SOUNDS DIMINISHED. PT ON 2L NC T/O THE NOC. PT STILL C/O ABD PAIN, MEDICATED PER EMAR. PT STATES MEDICATION WORKS WELL FOR HER. PT 1P SBA TO BSC. NO ACUTE EVENTS.
[2023-08-19 07:42] VITALS: BP 121/61
[2023-08-19] MEDS ORDERED: Isosorbide Mononitrate 30 MG TABCR PO SCH (09:00)
--- NOTE | 2023-08-19 16:00 | NUR ---
PT IS ALERT AND ORIENTED TO SELF, PLACE, DATE, SITUATION. SHE DENIES CP OR SOB. EVEN CHEST RISE AND FALL NOTED. SHE HAS WORKED WITH PHYSICAL THERAPY TODAY WITHOUT DIFFICULTY, SHE TOLERATED PHYSICAL THERAPY WELL. SR-ST 90-105 NOTED ON MONITOR FOR THE DAY. SHE HAS COMPLAINED THIS AFTERNOON OF PAIN AND WAS TREAD WITH PERCOCET FOR PAIN WHICH CONTROLLED HER PAIN WELL. SHE HAS OTHERWISE BEEN RESTING WELL IN BED REPORTS THAT PAIN IS MANAGABLE FOR THE DAY. SHE REPORTS THAT SHE IS INTERESTED IN STAYING UNTIL DR BAH IS ABLE TO PLACE IVC NEXT WEEK. SHE IS PLEASANT AND COOPERATIVE WITH CARE. VSS.
[2023-08-19] MEDS ORDERED: FentaNYL 12 MCG/HR Patch TOP SCH (16:30)
[2023-08-19 16:49] VITALS: BP 126/67
--- NOTE | 2023-08-19 16:49 | NUR ---
FENTANYL PATCH LT UPPER SHOULDER
[2023-08-19 19:20] VITALS: BP 123/75
[2023-08-20] MEDS ORDERED: Ipratropium/Albuterol SulF 2.5-0.5MG/3 ML Amp INH SCH (01:16)
[2023-08-20 02:48] VITALS: BP 146/60
[2023-08-20 06:17] LABS: BASOPHILS ABSOLUTE AUTO 0.01 K/mm3 (0.00-0.23); BASOPHILS PERCENT AUTO 0 % (0-2); EOSINOPHILS ABSOLUTE AUTO 0.03 K/mm3 (0.00-0.68); EOSINOPHILS PERCENT AUTO 0 % (0-6); Hemoglobin 8.4 g/dL (11.5-16.0); IMMATURE GRAN ABSOLUTE AUTO 0.06 K/mm3 (0.00-0.10); IMMATURE GRAN PERCENT AUTO 1 % (0-1); LYMPHOCYTES ABSOLUTE AUTO 0.75 K/mm3 (0.84-5.20); LYMPHOCYTES PERCENT AUTO 11 % (21-46); MONOCYTES ABSOLUTE AUTO 0.74 K/mm3 (0.16-1.47); MONOCYTES PERCENT AUTO 11 % (4-13); Mean Corpuscular HGB 21.4 pg (26.0-34.0); Mean Corpuscular Volume 77 fL (80-100); NEUTROPHILS ABSOLUTE AUTO 5.43 K/mm3 (1.96-9.15); NEUTROPHILS PERCENT AUTO 77 % (41-73); Platelet Count 226 K/mm3 (150-400); RDW Coefficient Variation 18.6 % (11.7-14.2); RDW Standard Deviation 50.1 fL (35.1-46.3); Red Blood Cell Count 3.92 M/mm3 (3.80-5.20); White Blood Cell Count 7.02 K/mm3 (4.00-11.30)
--- NOTE | 2023-08-20 06:25 | NUR ---
SHIFT SUMMARY: Pt admitted for GI bleed and is a full code. Is alert and able to make needs known. ADLs have been 1p through shift. Denies pain or discomfort when asked. Telly reports sinus in the 90s.
[2023-08-20 06:46] LABS: Bun/Creatinine Ratio 36.5 (12.0-20.0); Calcium, Blood 8.5 mg/dL (8.5-10.1); Creatinine, Blood 0.71 mg/dL (0.40-1.00); Potassium, Blood 4.5 mmol/L (3.5-5.5)
[2023-08-20 07:22] VITALS: BP 132/59
[2023-08-20] MEDS ORDERED: Sod Ferric Gluc Complx/Sucrose 125 MG in NS 100 ML IV SCH (12:00)
[2023-08-20] MEDS ORDERED: NS 250 ML IV PRN (12:05)
[2023-08-20 15:10] VITALS: BP 139/57
--- NOTE | 2023-08-20 17:45 | NUR ---
SHIFT SUMMARY PT CONT WITH LEVEL OF CARE WITH NO EVENTS NOTED. PT DID SPEAK WITH PHYSICIAN AND IS NOW A LIMITED DNR. PT HAS DNR WRIST BAND ON RIGHT WRIST.
[2023-08-20 19:35] VITALS: BP 126/64
[2023-08-21 03:21] VITALS: BP 148/61
--- NOTE | 2023-08-21 06:04 | NUR ---
SHIFT SUMMARY: Pt is admitted for GI bleed and is a DNR. is alert and able to make needs known. ADLs have been 1p. Denies pain or discomfort when asked. Telly reports sinus in the 80s.
[2023-08-21 07:51] VITALS: BP 119/75
[2023-08-21 08:32] LABS: Hemoglobin 8.7 g/dL (11.5-16.0); Mean Corpuscular HGB 21.6 pg (26.0-34.0); Mean Corpuscular HGB Conc 28.1 g/dL (31.5-36.5); Mean Corpuscular Volume 77 fL (80-100); Mean Platelet Volume 9.1 fL (9.1-12.4); NRBC ABSOLUTE 0.03 K/mm3 (0.00-0.02); NRBC Auto 0.3 /100 WBC (0.0-0.2); Platelet Count 246 K/mm3 (150-400); RDW Coefficient Variation 18.6 % (11.7-14.2); RDW Standard Deviation 50.4 fL (35.1-46.3); Red Blood Cell Count 4.02 M/mm3 (3.80-5.20); White Blood Cell Count 8.81 K/mm3 (4.00-11.30)
[2023-08-21 08:54] LABS: Bun/Creatinine Ratio 38.7 (12.0-20.0); Calcium, Blood 8.8 mg/dL (8.5-10.1); Creatinine, Blood 0.78 mg/dL (0.40-1.00); Potassium, Blood 4.4 mmol/L (3.5-5.5)
[2023-08-21] MEDS ORDERED: PANT40 PO (13:48)
[2023-08-21] MEDS ORDERED: FENTANYL1 EA12 TOP (13:50)
[2023-08-21] MEDS ORDERED: HYDR1TAB94 PO (13:51)
[2023-08-21] MEDS ORDERED: MUPIROCIN1 G1 TOP (13:52)
--- NOTE | 2023-08-21 18:12 | NUR ---
DISCHARGE SUMMARY: PT DISCHARGED HOME TODAY. PT AND SON EDUCATED ON DISCHARGE MEDICATIONS AND PLAN. PT ON RA AT REST AT THIS TIME. PT REPORTS SHE HAS OXYGEN AT HOME SHE CAN USE. [facility] 3 DAYS PER PT SHE HAD PHONE CALL WITH [facility]. PT REPORTS SHE HAS ADEQUATE ACCESS TO OXYGEN FOR USE WHILE AMBULATING. PT AND SON V/U WITH DC PLAN AND MEDICATIONS. FENTANYL PATCH SECURED WITH TEGADERM TO LEFT SHOULDER AND SON EDUCATED ON SAFETY USE AND STORAGE OF NARCOTICS. ADVISED TO KEEP MEDICATIONS LOCKED UP AND TO USE GLOVES AND DISPOSE OF FENTANYL PATCH WHERE CHILDRED CANNOT ACCESS. SON/PT V/U. PT ESCORTED TO POV VIA WHEELCHAIR. HARD SCRIPTS SENT WITH PT.
== END 2023-08-21 17:10 | disposition home health service (06) | DRG 378 ==
LOC: ER 11:02 → PCU 11:03 → MEDS 08-17 14:55 → PCU 08-17 14:55 → MEDS 08-19 17:37
PROVIDERS: Emergency Medicine; Internal Medicine; ADMIT Internal Medicine
DX: K92.1 Melena (principal); C22.0 Liver cell carcinoma; I27.82 Chronic pulmonary embolism; C78.02 Secondary malignant neoplasm of left lung; C78.01 Secondary malignant neoplasm of right lung; J44.9 Chronic obstructive pulmonary disease, unspecified; E11.9 Type 2 diabetes mellitus without complications; D50.0 Iron deficiency anemia secondary to blood loss (chronic); Z66 Do not resuscitate; I27.20 Pulmonary hypertension, unspecified; K74.60 Unspecified cirrhosis of liver; R62.7 Adult failure to thrive; Z88.0 Allergy status to penicillin; Z88.2 Allergy status to sulfonamides; Z88.8 Allergy status to other drugs, medicaments and biological substances; Z79.01 Long term (current) use of anticoagulants; Z79.52 Long term (current) use of systemic steroids; Z79.84 Long term (current) use of oral hypoglycemic drugs; Z79.4 Long term (current) use of insulin; Z85.42 Personal history of malignant neoplasm of other parts of uterus; Z86.19 Personal history of other infectious and parasitic diseases; Z87.891 Personal history of nicotine dependence; Z68.23 Body mass index [BMI] 23.0-23.9, adult
CPT/HCPCS: 36415; 74174; 80048; 80053; 81001; 82947; 85014; 85018; 85025; 85027; 85610; 86900; 86901; 94640; 94664; 94760; 94761; 96361; 96365-59; 96375-59; 97110; 97162; 97530; 99285-25; A9270; G0378; J0696; J1815; J2916; J3010; J7050; J7120; J7512; Q9967

== ENCOUNTER 2023-08-24 10:03 | Emergency (ER) | payer OTHER ==
[~2023-08-24] VITALS: Ht 160 cm; Wt 63.5 kg
[~2023-08-24 10:03] MED LIST changes: +FENTANYL1 EA12 TOP; +HYDR1TAB94 PO; +JARDIANCE10 MG PO; +MUPIROCIN1 G1 TOP; +NITROGLYCERIN0.4 M1 SL; +PANT40 PO; +STIOLTO RESPIMAT4 G1
[2023-08-24 11:11] LABS: BASOPHILS ABSOLUTE AUTO 0.04 K/mm3 (0.00-0.23); BASOPHILS PERCENT AUTO 0 % (0-2); EOSINOPHILS ABSOLUTE AUTO 0.12 K/mm3 (0.00-0.68); EOSINOPHILS PERCENT AUTO 1 % (0-6); Hematocrit 34.4 % (33.0-51.0); Hemoglobin 9.6 g/dL (11.5-16.0); IMMATURE GRAN ABSOLUTE AUTO 0.59 K/mm3 (0.00-0.10); IMMATURE GRAN PERCENT AUTO 5 % (0-1); LYMPHOCYTES PERCENT AUTO 11 % (21-46); MONOCYTES ABSOLUTE AUTO 0.99 K/mm3 (0.16-1.47); MONOCYTES PERCENT AUTO 9 % (4-13); Mean Corpuscular HGB 22.3 pg (26.0-34.0); Mean Corpuscular HGB Conc 27.9 g/dL (31.5-36.5); Mean Corpuscular Volume 80 fL (80-100); Mean Platelet Volume 8.9 fL (9.1-12.4); NEUTROPHILS ABSOLUTE AUTO 8.24 K/mm3 (1.96-9.15); NEUTROPHILS PERCENT AUTO 74 % (41-73); NRBC Auto 0.9 /100 WBC (0.0-0.2); Platelet Count 347 K/mm3 (150-400); RDW Coefficient Variation 21.4 % (11.7-14.2); RDW Standard Deviation 51.1 fL (35.1-46.3); Red Blood Cell Count 4.31 M/mm3 (3.80-5.20); White Blood Cell Count 11.18 K/mm3 (4.00-11.30)
[2023-08-24 11:33] LABS: Albumin, Blood 2.7 g/dL (3.4-5.0); Albumin/Globulin Ratio 0.7 (0.8-1.8); Bilirubin, Total 0.6 mg/dL (0.1-1.0); Bun/Creatinine Ratio 42.6 (12.0-20.0); Creatinine, Blood 0.75 mg/dL (0.40-1.00); Globulin, Blood 3.8 g/dL (2.2-4.0); Potassium, Blood 4.8 mmol/L (3.5-5.5); Total Protein, Blood 6.5 g/dL (6.4-8.2)
[2023-08-24 11:50] LABS: BASOPHILS PERCENT MAN 0 % (0-2); EOSINOPHILS ABSOLUTE MAN 0.11 K/mm3 (0.00-0.68); EOSINOPHILS PERCENT MAN 1 % (0-6); LYMPHOCYTES ABSOLUTE MAN 1.34 K/mm3 (0.84-5.20); LYMPHOCYTES PERCENT MAN 12 % (21-46); MONOCYTES ABSOLUTE MAN 0.78 K/mm3 (0.16-1.47); MONOCYTES PERCENT MAN 7 % (4-13); NEUTROPHILS ABSOLUTE MAN 8.94 K/mm3 (1.96-9.15); SEG NEUTROPHILS PERCENT MAN 80 % (41-73); TOTAL CELLS COUNTED 100
[2023-08-24] MEDS ORDERED: Dexamethasone Sodium Phosphate 4 MG/ML 1ML Vial IV ONE (12:55)
[2023-08-24] MEDS ORDERED: Lactated Ringer's 1,000 ML IV ONE (12:55)
[2023-08-24] MEDS ORDERED: Ipratropium/Albuterol SulF 2.5-0.5MG/3 ML Amp INH ONE (13:00)
[2023-08-24 13:37] LABS: Bicarbonate Venous 27.1 mmol/L (24.0-30.0); pH Blood Venous 7.38 (7.34-7.37)
[2023-08-24] MEDS ORDERED: Ondansetron HCl 2 MG / ML 2ML Vial IV ONE (18:45)
[2023-08-25] MEDS ORDERED: OxyCODONE HCL 5 MG TAB PO ONE (10:35)
[2023-08-25 18:29] VITALS: BP 142/70
== END 2023-08-25 18:40 | disposition home or self-care (01) ==
LOC: ER 10:03
PROVIDERS: Emergency Medicine; Physician Assistant
DX: C34.90 Malignant neoplasm of unspecified part of unspecified bronchus or lung (principal); J44.9 Chronic obstructive pulmonary disease, unspecified; E11.9 Type 2 diabetes mellitus without complications; K21.9 Gastro-esophageal reflux disease without esophagitis; I10 Essential (primary) hypertension; F43.10 Post-traumatic stress disorder, unspecified; M19.90 Unspecified osteoarthritis, unspecified site; Z87.891 Personal history of nicotine dependence; Z79.899 Other long term (current) drug therapy; Z79.4 Long term (current) use of insulin; Z79.52 Long term (current) use of systemic steroids; Z88.0 Allergy status to penicillin; Z88.2 Allergy status to sulfonamides; Z91.018 Allergy to other foods; Z88.8 Allergy status to other drugs, medicaments and biological substances; Z88.1 Allergy status to other antibiotic agents
CPT/HCPCS: 71046; 80053; 82803; 82947; 85025; 93005; 93010; 94640; 94664; 96374; 96375; 99285-25; A9270; J1100; J2405; J7120

== ENCOUNTER 2023-09-03 08:48 | Emergency (ER) | payer OTHER ==
[~2023-09-03] VITALS: Ht 160 cm; Wt 46.7 kg
[2023-09-03 09:11] LABS: BASOPHILS ABSOLUTE AUTO 0.02 K/mm3 (0.00-0.23); BASOPHILS PERCENT AUTO 0 % (0-2); EOSINOPHILS ABSOLUTE AUTO 0.08 K/mm3 (0.00-0.68); EOSINOPHILS PERCENT AUTO 1 % (0-6); Hematocrit 32.9 % (33.0-51.0); Hemoglobin 9.4 g/dL (11.5-16.0); IMMATURE GRAN ABSOLUTE AUTO 0.04 K/mm3 (0.00-0.10); IMMATURE GRAN PERCENT AUTO 0 % (0-1); LYMPHOCYTES ABSOLUTE AUTO 1.01 K/mm3 (0.84-5.20); LYMPHOCYTES PERCENT AUTO 10 % (21-46); MONOCYTES ABSOLUTE AUTO 0.89 K/mm3 (0.16-1.47); MONOCYTES PERCENT AUTO 9 % (4-13); Mean Corpuscular HGB 22.4 pg (26.0-34.0); Mean Corpuscular HGB Conc 28.6 g/dL (31.5-36.5); Mean Corpuscular Volume 79 fL (80-100); Mean Platelet Volume 8.8 fL (9.1-12.4); NEUTROPHILS PERCENT AUTO 80 % (41-73); Platelet Count 251 K/mm3 (150-400); RDW Coefficient Variation 22.5 % (11.7-14.2); RDW Standard Deviation 61.8 fL (35.1-46.3); Red Blood Cell Count 4.19 M/mm3 (3.80-5.20); White Blood Cell Count 10.44 K/mm3 (4.00-11.30)
[2023-09-03] MEDS ORDERED: Percocet 5-3251 EACH PO (09:12)
[2023-09-03 09:49] LABS: Albumin, Blood 2.6 g/dL (3.4-5.0); Albumin/Globulin Ratio 0.8 (0.8-1.8); Bilirubin, Total 1.1 mg/dL (0.1-1.0); Bun/Creatinine Ratio 33.3 (12.0-20.0); Calcium, Blood 8.3 mg/dL (8.5-10.1); Creatinine, Blood 0.66 mg/dL (0.40-1.00); Globulin, Blood 3.4 g/dL (2.2-4.0); Potassium, Blood 4.8 mmol/L (3.5-5.5)
[2023-09-03 09:50] LABS: Influenza A, PCR NEGATIVE (NEGATIVE); Influenza B, PCR NEGATIVE (NEGATIVE); Resp Syncytial Virus, PCR NEGATIVE (NEGATIVE); SARS-Cov-2 (COVID-19) PCR, MMC NEGATIVE (NEGATIVE)
[2023-09-03] MEDS ORDERED: Ondansetron HCl 2 MG / ML 2ML Vial IV ONE (09:55)
[2023-09-03] MEDS ORDERED: Morphine Sulfate IR 15 MG Tab PO ONE (11:40)
[2023-09-03] MEDS ORDERED: MORP20L PO (14:43)
--- NOTE | 2023-09-03 15:00 | NUR ---
GOALS OF CARE MET WITH DYLAN IN THE ED. SHE CAME IN FOR DYSPNEA THAT WAS WORSENING. DURING THIS VISIT HER SPO2 WAS AT HER BASELINE AND OXYGEN VIA NC ALSO AT BASELINE. DYLAN REPORTS NOT WANTING TO KEEP RETURNING TO THE HOSPITAL AND FEELING LIKE IT IS TIME FOR HOSPICE. THIS PC RN OFFERED TO CALL HER SON MICHI TO REVIEW GOC. SHE STATED, "BOTH OF MY SONS ARE TAKING CARE OF THINGS. MY HAS CANCER TOO. THEY KNOW WHATS GOING ON AND I'M NOT GOING TO BE HERE FOREVER." THIS PC RN PHONED SON MICHI, HE PLACED PHONE CALL ON SPEAKER TO ADD OTHER SON, RADHA. THEY BOTH EXPRESSED AN UNDERSTANDING OF HER NEED TO START HOSPICE. MICHI STATED "WE JUST WANT HER TO BE COMFORTABLE." RADHA CONCURES. THE SONS REPORT PT AND HER HSBD [place]EXT [place] AND THEIR HOUSE IS BEING PUT ON THE MARKET AT THE SAME TIME. INFORMATION RE: PT/FAMILY WISHES RELAYED TO DR. BACH AND EMI SNELL.
[2023-09-03 18:00] VITALS: BP 115/60
== END 2023-09-03 18:34 | disposition home or self-care (01) ==
LOC: ER 08:48
PROVIDERS: Emergency Medicine
DX: R06.03 Acute respiratory distress (principal); C78.02 Secondary malignant neoplasm of left lung; C78.01 Secondary malignant neoplasm of right lung; D01.5 Carcinoma in situ of liver, gallbladder and bile ducts; J44.9 Chronic obstructive pulmonary disease, unspecified; E11.9 Type 2 diabetes mellitus without complications; K21.9 Gastro-esophageal reflux disease without esophagitis; F43.10 Post-traumatic stress disorder, unspecified; I10 Essential (primary) hypertension; M19.90 Unspecified osteoarthritis, unspecified site; Z86.73 Personal history of transient ischemic attack (TIA), and cerebral infarction without residual deficits; Z87.891 Personal history of nicotine dependence; Z79.52 Long term (current) use of systemic steroids; Z79.4 Long term (current) use of insulin; Z91.018 Allergy to other foods; Z88.0 Allergy status to penicillin; Z88.2 Allergy status to sulfonamides; Z88.5 Allergy status to narcotic agent; Z88.1 Allergy status to other antibiotic agents; Z88.8 Allergy status to other drugs, medicaments and biological substances
CPT/HCPCS: 0241U; 71045; 80053; 83880; 84484; 85025; 93005; 93010; 96374; 99285-25; A9270; J2405